=== PATIENT | male | born 1990 | race Hispanic/Latino ===

== ENCOUNTER 2023-11-23 13:21 | Emergency (ER) | payer SELFPAY ==
[~2023-11-23] VITALS: Ht 170.2 cm; Wt 54.4 kg
[2023-11-23 14:24] VITALS: TEMP 97.8
[2023-11-23] MEDS ORDERED: LIDOCAINE 1% W/EPINEPHRINE 20 ML VIAL ONE (14:46)
[2023-11-23] MEDS ORDERED: TRANEXAMIC ACID 1,000 MG/10 ML ML ONE (14:49)
[2023-11-23] MEDS: HYDROCODONE/APAP 5MG-325MG TAB PO ONE (16:29)
[2023-11-23] MEDS: TETANUS/DIPHTHERIA TOX ADULT 0.5 ML SYR IM ONE (16:29)
[2023-11-23] MEDS: LIDOCAINE 1% W/EPINEPHRINE 20 ML VIAL INJ ONE (16:32)
[2023-11-23] MEDS ORDERED: ULTRAM 50MG50 MG PO (16:32)
[2023-11-23] MEDS: TRANEXAMIC ACID 1,000 MG/10 ML ML INJ STA (16:32)
[2023-11-23 16:45] VITALS: PULSE 58; RESP 16
[2023-11-23 16:48] VITALS: BP 133/81; PULSE 58; RESP 16; O2SAT 100
== END 2023-11-24 | disposition home or self-care (01) ==
LOC: ER 11-24 02:43
DX: S61.112A Laceration without foreign body of left thumb with damage to nail, initial encounter (principal); W26.0XXA Contact with knife, initial encounter; Y99.0 Civilian activity done for income or pay
CPT/HCPCS: 90714; 99283